=== PATIENT | female | born 1995 | race African-American/Black ===

== ENCOUNTER 2018-11-12 19:11 | Emergency (ER) | payer SELFPAY ==
[~2018-11-12] VITALS: Ht 157.5 cm; Wt 50.0 kg
[2018-11-12 20:50] VITALS: BP 110/44
[2018-11-12] MEDS ORDERED: PENICILLIN G BENZATHINE 1,200,000 UNITS/2ML SYR IM ONE (22:00)
[2018-11-12] MEDS ORDERED: DEXAMETHASONE 4MG/ML 1ML VIAL IM ONE (22:00)
[2018-11-12] MEDS ORDERED: KETOROLAC 15MG/ML VIAL IM ONE (22:00)
== END 2018-11-12 22:39 | disposition home or self-care (01) ==
LOC: ER 22:18
DX: J02.9 Acute pharyngitis, unspecified (principal); D64.9 Anemia, unspecified; G47.00 Insomnia, unspecified
CPT/HCPCS: 81025; 96372; 99283; J0561; J1100; J1885

== ENCOUNTER 2019-11-28 03:06 | Emergency (ER) | payer BC ==
[~2019-11-28] VITALS: Ht 157.5 cm; Wt 50.0 kg
[2019-11-28 04:26] LABS: CHLORIDE 104 mEq/L (98-107)
[2019-11-28 04:35] LABS: BASOPHILS % 0.3 % (0.0-2.0); EOSINOPHILS % 0.3 % (0.0-5.0); HEMATOCRIT. 26.5 % (36.0-48.0); LYMPHOCYTES % 15.7 % (20.0-50.0); MEAN CORPUSCULAR HEMOGLOBIN 17.2 pg (28.0-32.0); MONOCYTES % 11.6 % (2.0-8.0); NEUTROPHILS % 72.1 % (40.0-76.0); PLATELET 326 x1000/uL (130-400); RED BLOOD CELL COUNT 4.65 mill/uL (4.2-5.4); RED CELL DISTRIBUTION WIDTH 20.2 % (11.6-14.6)
[2019-11-28 04:52] LABS: CLARITY URINE CLEAR (CLEAR); COLOR URINE YELLOW (YELLOW); KETONES URINE NEGATIVE (NEGATIVE); LEUKOCYTE ESTERASE URINE NEGATIVE (NEGATIVE); NITRITE URINE NEGATIVE (NEGATIVE); OCCULT BLOOD URINE NEGATIVE (NEGATIVE); PH URINE >=9.0 (4.5-8.0); PROTEIN URINE 1+ (NEGATIVE); SPECIFIC GRAVITY URINE 1.024 (1.005-1.030); UROBILINOGEN URINE 0.2 E.U./dL (0.2-1.0)
[2019-11-28] MEDS ORDERED: IBUPROFEN 400MG TABLET PO ONE (05:00)
[2019-11-28 05:06] LABS: PLATELET ESTIMATE NORMAL
[2019-11-28] MEDS ORDERED: AZITHROMYCIN 500 MG TABLET PO ONE (06:00)
[2019-11-28] MEDS ORDERED: CEFTRIAXONE 1 G PREMIX 50 ML IV ONE (06:00)
[2019-11-28 07:26] VITALS: BP 123/77
== END 2019-11-28 07:00 | disposition home or self-care (01) ==
LOC: ER 03:06
DX: U07.1 COVID-19 (principal); R10.11 Right upper quadrant pain; R91.8 Other nonspecific abnormal finding of lung field
CPT/HCPCS: 36415; 71045; 74176; 80053; 81003; 83690; 85025; 96365; 99285; C9803; J0696; U0003